=== PATIENT | female | born 1995 | race Caucasian/White ===

== ENCOUNTER 2018-12-04 13:47 | Emergency (ER) | payer BC ==
[2018-12-04 14:10] VITALS: BP 117/90
--- NOTE | 2018-12-04 14:20 | UC ---
FLU HPI - HPI Summary HPI Summary: Pt prsents with c/o of sore throat, right ear pain X 10 days. Pt has been taking OTC "cold medication" - History of Current Complaint Chief Complaint: UCRespiratory Stated Complaint: ST/BLIAT EAR PAIN Time Seen by Provider: 12/04/18 14:06 Hx Obtained From: Patient Hx Last Menstrual Period: 12/04/18 ?: No Onset/Duration: Gradual Onset, Lasting Days, Still Present Severity Currently: Moderate Severity Initially: Mild Pain Intensity: 0 Associated Signs & Symptoms: Positive: Fever, Myalgia, Nasal Congestion Related Hx: Possible Flu/Infectious Exposure - Risk Factors Influenza Risk Factors: Negative - Allergy/Home Medications Allergies/Adverse Reactions: Allergies Allergy/AdvReac Type Severity Reaction Status Date / Time No Known Allergies Allergy Verified 12/04/18 14:05 Home Medications: Home Medications Add Medication 10 mg PO DAILY 12/04/18 [History] Etonogestrel [Nexplanon] 68 mg IMPLANT ONCE 12/04/18 [History Confirmed 12/04/18 ] PMH/Surg Hx/FS Hx/Imm Hx Previously Healthy: Yes - Surgical History Surgical History: None - Family History Known Family History: Positive: Cardiac Disease - Social History Occupation: Student Lives: With Family Alcohol Use: None Substance Use Type: None Smoking Status (MU): Never Smoked Tobacco Have You Smoked in the Last Year: No - Immunization History Vaccination Up to Date: Yes Review of Systems All Other Systems Reviewed And Are Negative: Yes Constitutional: Positive: Fatigue Skin: Positive: Negative Eyes: Positive: Negative ENT: Positive: Sore Throat, Ear Ache - right, Sinus Congestion Respiratory: Positive: Negative Cardiovascular: Positive: Negative Gastrointestinal: Positive: Negative Genitourinary: Positive: Negative Motor: Positive: Negative Neurovascular: Positive: Negative Musculoskeletal: Positive: Negative Neurological: Positive: Negative Psychological: Positive: Negative Is Patient Immunocompromised?: No Physical Exam Triage Information Reviewed: Yes Appearance: Well-Appearing Vital Signs: Initial Vital Signs Temp 98.6 F 12/04/18 14:07 Pulse 88 12/04/18 14:07 Resp 16 12/04/18 14:07 BP 117/90 12/04/18 14:07 Pulse Ox 100 12/04/18 14:07 Vital Signs Reviewed: Yes Eye Exam: Normal ENT: Positive: Nasal congestion Dental Exam: Normal Neck exam: Normal Respiratory Exam: Normal Cardiovascular Exam: Normal Musculoskeletal Exam: Normal Neurological Exam: Normal Psychological Exam: Normal Skin Exam: Normal Flu Course/Dx - Differential Dx/Diagnosis Differential Diagnosis/HQI/PQRI: Influenza, Upper Respiratory Infection Provider Diagnosis: Viral syndrome Discharge ED - Sign-Out/Discharge Documenting (check all that apply): Patient Departure All imaging exams completed and their final reports reviewed: No Studies - Discharge Plan Condition: Stable Disposition: HOME Patient Education Materials: Viral Syndrome (ED) Referrals: [facility] [place] [facility] [Outside] - If Needed No Primary Care Phys,NOPCP [Primary Care Provider] - Additional Instructions: Please follow up with a PCP as needed. If your symptoms do not improve please seek care at the closest healthcare facility as soon as possible. - Billing Disposition and Condition Condition: STABLE Disposition: Home - Attestation Statements Provider Attestation: I was available for consult. This patient was seen by the [facility]. The patient was not presented to, seen by, or examined by me. Sukhdev Qiu MD
== END 2018-12-04 14:27 | disposition home or self-care (01) ==
LOC: UCCORT 13:47
DX: B34.9 Viral infection, unspecified (principal)
CPT/HCPCS: 99201; G0463